=== PATIENT | male | born 1985 | race Caucasian/White ===

== ENCOUNTER 2017-08-09 21:02 | Emergency (ER) | payer MEDICARE | END 2017-08-09 21:31 | disposition home or self-care (01) | LOC: BURERS 21:02 | DX: J06.9 Acute upper respiratory infection, unspecified (principal); F17.210 Nicotine dependence, cigarettes, uncomplicated | CPT/HCPCS: 99406 ==

== ENCOUNTER 2019-04-18 11:12 | Emergency (ER) | payer MEDICARE, SELFPAY ==
[2019-04-18] MEDS ORDERED: Lidocaine 1% PF 5 ML VIAL ONE (11:42)
[2019-04-18] MEDS ORDERED: Bacitracin 1 PK ONE (11:58)
[2019-04-18] MEDS ORDERED: Adacel (T-DAP) 0.5 ML SYRINGE ONE (11:59)
== END 2019-04-18 12:08 | disposition home or self-care (01) ==
LOC: BURERS 11:12
DX: S61.210A Laceration without foreign body of right index finger without damage to nail, initial encounter (principal); K21.9 Gastro-esophageal reflux disease without esophagitis; F17.210 Nicotine dependence, cigarettes, uncomplicated; F98.8 Other specified behavioral and emotional disorders with onset usually occurring in childhood and adolescence; W26.0XXA Contact with knife, initial encounter; Z23 Encounter for immunization
CPT/HCPCS: 12001; 90471; 90715; J2001

== ENCOUNTER 2021-02-26 20:10 | Emergency (ER) | payer OTHER ==
[2021-02-26] MEDS ORDERED: Bacitracin 1 PK ONE (20:25)
[2021-02-26] MEDS ORDERED: Lidocaine 2% PF 5 ML VIAL ONE (20:25)
== END 2021-02-26 21:20 | disposition home or self-care (01) ==
LOC: BURERS 20:10
DX: S61.411A Laceration without foreign body of right hand, initial encounter (principal); K21.9 Gastro-esophageal reflux disease without esophagitis; F17.210 Nicotine dependence, cigarettes, uncomplicated; W22.8XXA Striking against or struck by other objects, initial encounter
CPT/HCPCS: 12002; J2001